=== PATIENT | female | born 1980 | race Caucasian/White ===

== ENCOUNTER 2020-08-06 02:52 | Emergency (ER) | payer SELFPAY ==
[2020-08-06] MEDS ORDERED: DIPHENHYDRAMINE HCL 50 MG/ML VIAL IV ONE (07:06)
[2020-08-06] MEDS ORDERED: ONDANSETRON HCL INJ/PF 4 MG/2 ML SDV IV ONE ×2 (07:06→09:52)
[2020-08-06] MEDS ORDERED: NORMAL SALINE 1000 ML 1,000 ML IV ONE (07:06)
[2020-08-06] MEDS ORDERED: KETOROLAC TROMETHAMINE INJ/PF 30 MG/1 ML SDV IV ONE (07:06)
[2020-08-06] MEDS ORDERED: MORPHINE SULFATE 10 MG/ML INJ IV ONE (07:06)
[2020-08-06] MEDS ORDERED: METHOCARBAMOL INJ/PF 1000 MG/10 ML SDV IV ONE (07:08)
--- NOTE | 2020-08-06 07:26 | ER Document Report ---
Entered by KVNG GAN SCRIBE 08/06/20 0654 Acting as scribe for:JOY LOYD MD ED Extremity Problem, Lower - General Chief Complaint: Leg Pain Stated Complaint: LEG PAIN/CRAMP Time Seen by Provider: 08/06/20 06:51 Mode of Arrival: Medic Information source: Patient Notes: This 40 year old female patient brought in by EMS from home presents to the ED today with complaints of right lower extremity pain that woke her up prior to arrival. Patient describes the pain as sharp in nature that radiates down the side of her right leg from the hip down to her toes. She also notes a cramping sensation in her right calf. She reports that the pain was tolerable when she was sitting up, but it was worse when she laid down. Patient denies similar symptoms in the past. TRAVEL OUTSIDE OF THE [place] IN LAST 30 DAYS: No - Related Data Allergies/Adverse Reactions: Sulfa (Sulfonamide Antibiotics) Allergy (Intermediate, Verified 10/21/11 14:58) Past Medical History - General Information source: Patient, [facility] Records - Social History Smoking Status: Never Smoker Cigarette use (# per day): No Chew tobacco use (# tins/day): No Smoking Education Provided: No Frequency of alcohol use: Occasional Drug Abuse: None Lives with: Spouse/Significant other Family History: Reviewed & Not Pertinent Patient has suicidal ideation: No Patient has homicidal ideation: No - Past Medical History Cardiac Medical History: Reports: Hx Hypertension Endocrine Medical History: Reports: Hx Hypothyroidism - Dx'ed 12/20 GI Medical History: Reports: Hx Gastroesophageal Reflux Disease Past Surgical History: Reports: Hx Section - X2, Hx Orthopedic Surgery - back - Immunizations Hx Diphtheria, Pertussis, Tetanus Vaccination: Yes Review of Systems - Review of Systems Constitutional: No symptoms reported EENT: No symptoms reported Cardiovascular: No symptoms reported Respiratory: No symptoms reported Gastrointestinal: No symptoms reported Genitourinary: No symptoms reported Female Genitourinary: No symptoms reported Musculoskeletal: See HPI Skin: No symptoms reported Hematologic/Lymphatic: No symptoms reported Neurological/Psychological: No symptoms reported -: Yes All other systems reviewed and negative Physical Exam - Vital signs Vitals: Temp Pulse Resp BP Pulse Ox 97.4 F 109 H 20 113/89 H 100 08/06/20 03:00 08/06/20 03:00 08/06/20 03:00 08/06/20 03:00 08/06/20 03:00 - General General appearance: Alert, Anxious - HEENT Head: Normocephalic, Atraumatic Eyes: Normal Pupils: PERRL - Respiratory Respiratory status: No respiratory distress Chest status: Nontender Breath sounds: Normal Chest palpation: Normal - Cardiovascular Rhythm: Regular Heart sounds: Normal auscultation Murmur: No Friction rub: No Gallop: None auscultated - Abdominal Inspection: Normal Distension: No distension Bowel sounds: Normal Tenderness: Nontender - Abdomen soft Organomegaly: No organomegaly - Back Back: Normal, Nontender - Extremities General lower extremity: Other - Sensation intact in RLE. No: Edema Hip: Tender - Tenderness to palpation of right lateral hip area Thigh: Tender - Tenderness to palpation of right lateral thigh down to the knee Calf: Tender - Right calf is tender to palpation. There is no active spasming or swelling appreciated. - Neurological Neuro grossly intact: Yes Orientation: AAOx4 Jennifer Coma Scale Eye Opening: Spontaneous Jennifer Coma Scale Verbal: Oriented [place] Coma Scale Motor: Obeys Commands Jennifer Coma Scale Total: 15 - Psychological Associated symptoms: Anxious - Skin Skin Temperature: Warm Skin Moisture: Dry Skin Color: Normal Course - Re-evaluation Re-evalutation: 08/06/20 09:52 At this time patient states the pain is as bad as ever except that is now mostly in the bottom of the right foot. She states she cannot bear weight, when she tries to stand up she has severe pain in the foot and throughout the entire right lower extremity. She did get some rib pain relief initially with the medications, but it did not last long. 08/06/20 12:25 It is difficult to tell how much of her pain is muscular in origin and how much might be due to the right L5 nerve root being compressed. She will be given crutches due to the pain that happens when she puts any weight pressure on her right foot. She will be prescribed steroids, pain medication, muscle relaxers. She will self refer to a spine surgeon. - Vital Signs Vital signs: Temp Pulse Resp BP Pulse Ox 97.4 F 109 H 20 113/89 H 100 08/06/20 03:00 08/06/20 03:00 08/06/20 03:00 08/06/20 03:00 11/26/20 03:00 - Diagnostic Test Radiology reviewed: Image reviewed, Reports reviewed - MRI of the back shows degenerative changes most pronounced at L5-S1. There was high-grade right foraminal narrowing with effacement of the fat around the exiting right L5 nerve root. Discharge - Discharge Clinical Impression: Lumbosacral radiculopathy at L5, Pain of right lower extremity Condition: Stable Disposition: HOME, SELF-CARE Additional Instructions: The pain you are having in your right lower extremity seems to be more muscular in origin, but there could be a radiculopathy component based on the MRI findings. Start taking the prednisone as prescribed tomorrow, you have been given today's dose here in the emergency room. Take the pain medication and muscle relaxers as prescribed. Find the most comfortable position you can begin for your lower extremity discomfort. Use the crutches to prevent weightbearing on the right foot if it helps. Follow-up with your primary care provider next week if not improving, and fo llow-up with a spine surgeon to review your MRI results. RETURN TO THE EMERGENCY ROOM IF ANY NEW OR WORSENING SYMPTOMS. Prescriptions: Cyclobenzaprine HCl 5 mg PO Q8 PRN #15 tablet PRN Reason: Prednisone [Deltasone 10 mg Tablet] 10 mg PO ASDIR PRN #21 tablet PRN Reason: Oxycodone HCl/Acetaminophen [Percocet 5-325 mg Tablet] 1 tab PO ASDIR PRN #15 tablet PRN Reason: I personally performed the services described in the documentation, reviewed and edited the documentation which was dictated to the scribe in my presence, and it accurately records my words and actions.
[2020-08-06] MEDS ORDERED: HYDROMORPHONE HCL INJ/PF 2 MG/ML AMPULE IV ONE (09:52)
--- NOTE | 2020-08-06 11:31 | RADIOLOGY REPORT (SQ) ---
EXAM DESCRIPTION: MRI LUMBAR SPINE WITHOUT IMAGES COMPLETED DATE/TIME: 08/06/2020 10:58 am REASON FOR STUDY: RLE pain, prior discectomy COMPARISON: None. TECHNIQUE: Sagittal and Axial imaging includes T1, T2, STIR and gradient echo sequences. Coronal T2/ HASTE imaging. LIMITATIONS: None. FINDINGS: VISUALIZED UPPER ABDOMEN: Limited evaluation. No acute or suspicious findings suggested. SEGMENTATION: No transitional anatomy. The lowest well-developed disc space is labeled L5-S1. ALIGNMENT: Anatomic. VERTEBRAE: Intact. BONE MARROW: Normal. No marrow replacement or reactive changes. DISC SIGNAL: Decreased T2 weighted intervertebral disc signal with disc space loss of height at L4-5 and L5-S1 POSTERIOR ELEMENTS: Sclerosis along the bilateral L5 pars interarticularis without spondylolysis or listhesis. Old right laminectomy at L5 HARDWARE: None in the spine. CORD AND CONUS: Normal in size and signal intensity. Conus at the T12-L1 level. SOFT TISSUES: No aortic aneurysm seen. No bulky retroperitoneal adenopathy or mass. No paraspinal mas s or fluid. T11-12: Minimal posterior disc bulging, mild bilateral facet hypertrophy no central or foraminal ascencion nosis T12-L1: No central or foraminal stenosis. L1-L2: No central or foraminal stenosis. Mild bilateral facet hypertrophy L2-L3: No central or foraminal stenosis. Mild bilateral facet hypertrophy L3-L4: Mild posterior disc bulging, moderate bilateral facet hypertrophy. No central or foraminal st enosis L4-L5: Broad diffuse posterior disc bulging and bony spurring with moderate bilateral facet and ligam ent hypertrophy. Borderline central canal narrowing with flattening of the thecal sac into a triangu lar shape. Mild bilateral inferior foraminal narrowing without exit L4 nerve root impingement L5-S1: Broad diffuse posterior bulging and bony spurring right greater than left. Asymmetric right p aracentral and proximal foraminal disc bulge and bony spurring flattens the rightward thecal sac near the takeoff of the proximal right S1 nerve root in the lateral recess, best shown on axial images 20 -30, sagittal T2 image 6. High-grade right foraminal narrowing with effacement of the fat around the exiting right L5 nerve matthew t. Mild left foraminal narrowing. SACRUM: Visualized upper sacrum intact. OTHER: No other significant findings. IMPRESSION: Degenerative changes most pronounced at L5-S1. TECHNICAL DOCUMENTATION: JOB ID: [id number] 2010 [email or web address]- All Rights Reserved Reading location - IP/workstation name: [email or web address]
[2020-08-06] MEDS ORDERED: METHYLPREDNISOLONE INJ 125 MG/2 ML SDV IV ONE (12:09)
[2020-08-06] MEDS ORDERED: PREDNISONE 20 MG TABLET PO ONE (12:25)
[2020-08-06 13:12] VITALS: BP 139/79
== END 2020-08-06 13:13 | disposition home or self-care (01) ==
LOC: ER 02:52
DX: M47.27 Other spondylosis with radiculopathy, lumbosacral region (principal); M48.061 Spinal stenosis, lumbar region without neurogenic claudication; I10 Essential (primary) hypertension; Z88.2 Allergy status to sulfonamides
CPT/HCPCS: 99285; 96375; 96365; 72148; J1200; J2800; J2930; J1885; J2270; J1170; J7512; J2405; J7030